=== PATIENT | female | born 1930 | race Caucasian/White ===

== ENCOUNTER 2018-11-28 16:28 | Observation (INO) ==
--- NOTE | 2018-11-28 16:37 | Emergency Department Note ---
Disposition Clinical Impression: Congestive heart failure, Renal insufficiency Disposition: Admitted As Inpatient Condition: Good General Adult HPI - General Stated complaint: adema and short of breath, fluid in lungs Time Seen by Provider: 11/28/18 16:30 Source: patient Mode of arrival: ambulatory Limitations: no limitations Nursing Notes Reviewed: Yes Vital Signs Reviewed: Yes - History of Present Illness HPI Narrative: Patient has noted increased swelling in her legs and some shortness of breath since . She denies any chest pain fevers or chills nausea vomiting or other complaints. She is extremely short of breath when she exerts herself. Onset (ago): day(s) (About 5 days) Location: left, right, lower extremity Pain Scale: 0 Improves with: nothing Worsens with: nothing Associated symptoms: Reports: shortness of breath - Related Data Home Medications Medication Instructions Recorded Confirmed amLODIPine [Norvasc] 5 mg PO BID 05/24/18 11/28/18 Meclizine [Antivert] 25 mg PO TID PRN 08/18/18 11/28/18 HYDROcodone/Acet 5/325 mg [[place] 1 tab PO BID PRN 11/03/18 11/28/18 5-325 mg] Aspirin [Adult Aspirin] 81 mg PO DAILY 11/08/18 11/28/18 Atorvastatin [Lipitor] 20 mg PO HS 11/28/18 11/28/18 Carvedilol 12.5 mg PO BID 11/28/18 11/28/18 Cyclobenzaprine [Flexeril] 5 mg PO DAILY 11/28/18 11/28/18 Ergocalciferol (VITAMIN D2) 400 unit PO DAILY 11/28/18 11/28/18 [Vitamin D] Famotidine [Acid Grievance Coordinator] 10 mg PO DAILY 11/28/18 11/28/18 Furosemide [Lasix] 40 mg PO QMWF 11/28/18 11/28/18 hydrALAZINE [HydrALAZINE] 25 mg PO Q8HR 11/28/18 11/28/18 Allergies Allergy/AdvReac Type Severity Reaction Status Date / Time Sulfa (Sulfonamide Allergy See Verified 02/07/18 09:49 Antibiotics) Comments All systems ED: reviewed and negative except as stated. Review of Systems: As Per HPI Constitutional: Denies: fever, chills, weakness, weight change Eyes: Denies: eye pain, eye discharge, vision change ENT ED: Denies: ear pain, throat pain, dental pain, hearing loss, epistaxis, congestion, dysphagia Cardiovascular: Denies: chest pain, palpitations, dyspnea on exertion, edema, syncope Respiratory: Reports: as per HPI, other (Shortness of breath). Denies: cough, dyspnea, wheezes, hemoptysis, stridor Gastrointestinal: Denies: abdominal pain, nausea, vomiting, diarrhea, c onstipation, hematemesis, melena, hematochezia Genitourinary: Denies: dysuria, frequency, hematuria, discharge Musculoskeletal: Reports: as per HPI, other (Lower extremity edema). Denies: back pain, neck pain, arthralgia, myalgia Integumentary: Denies: rash, abrasion, lesions Neurological: Denies: headache, weakness, numbness, paresthesias, confusion, abnormal gait, vertigo Psychiatric: Denies: anxiety, depression, suicidal thoughts, homicidal thoughts, auditory hallucinations, visual hallucinations Endocrine: Denies: fatigue Past Medical History - Past Medical History Attestation: Yes The following information was validated with the patient. Source: patient, nursing notes reviewed Medical history: Reports: hyperlipidemia, hypertension, other Psychiatric history: Reports: no psych history BRASS CHASER history: Reports: no BRASS CHASER history - Social History Smoking Status: Never smoker Alcohol use: Reports: none Drug use: Reports: none Physical Exam - General Limitations: no limitations General appearance: alert, in no apparent distress - Head Head exam: atraumatic, normocephalic, normal inspection - Eye Eye exam: Present: normal appearance, PERRL, EOMI - ENT ENT exam: normal exam, normal oropharynx, mucous membranes moist - Neck Neck exam: Present: normal inspection, full ROM, trachea midline - Chest Chest inspection: Present: normal inspection, symmetric chest wall rise - Respiratory Respiratory exam: Present: normal lung sounds bilaterally. Absent: respiratory distress, wheezes - Cardiovascular Cardiovascular exam: Present: regular rate, normal rhythm, normal heart sounds - Abdominal Exam Abdominal exam: Present: soft, Non-Tender. Absent: tenderness, distention, guarding, rebound, rigidity - Extremities Exam Extremities exam: Present: pedal edema, other (3-4+ pitting edema lower extremities and the knees down.) - Back Exam Back exam: Present: normal inspection, full ROM. Absent: tenderness - Neurological Exam Neurological exam: Present: alert, oriented X3 - Psychiatric Psychiatric exam: Present: normal affect, normal mood - Skin Skin exam: Present: warm, dry, intact Course Vital Signs Temperature 98.4 F 11/28/18 16:46 Pulse Rate 79 11/28/18 16:46 Respiratory Rate 20 11/28/18 16:46 Blood Pressure 188/76 11/28/18 16:46 O2 Sat by Pulse Oximetry 96 11/28/18 16:46 Temperature 97.5 F L 11/28/18 19:55 Pulse Rate 90 11/28/18 19:55 Respiratory Rate 15 11/28/18 19:55 Blood Pressure 181/73 11/28/18 19:55 O2 Sat by Pulse Oximetry 96 11/28/18 19:55 Oxygen Delivery Oxygen Delivery Room Air Medical Decision Making - Lab Data Lab results reviewed: Yes I reviewed the patient's lab results. Result diagrams: 11/28/18 17:12 11/28/18 17:12 Lab Results 11/28/18 11/28/18 11/28/18 Range/Units 17:12 17:12 17:12 WBC 3.3 L (4.3-11.1) K/mcL RBC 3.58 L (3.82-4.97) M/mcL Hgb 9.4 L (11.5-15.4) g/dL Hct 29.9 L (35.3-44.9) % MCV 83.5 (83.0-100.0) fL MCH 26.3 L (28.0-33.3) pg MCHC 31.4 L (31.6-35.5) g/dL RDW 17.5 H (11.5-14.5) % Plt Count 160 (140-400) K/mcL MPV 8.8 L (9.4-12.4) fL Immature Gran % 0.3 (0-4) % Seg Neutrophils % 75.1 % Lymphocytes % 11.4 % Monocytes % 12.0 % Eosinophils % 1.2 % Basophils % 0.0 % Neutrophils # 2.5 (1.6-8.9) K/mcL Lymphocytes # 0.4 L (0.6-4.6) K/mcL Monocytes # 0.4 (0.0-1.3) K/mcL Eosinophils # 0.0 (0.0-0.6) K/mcL Basophils # 0.0 (0.0-0.2) K/mcL Sodium 139 (136-145) mEq/L Potassium 4.6 (3.5-5.1) mEq/L Chloride 110 H (98-107) mEq/L Carbon Dioxide 19 L (23-29) mEq/L BUN 40 H (8-23) mg/dL Creatinine 2.16 H (0.60-1.20) mg/dL Est GFR ( Amer) 26 L (> 60) Est GFR (Non-Af Amer) 22 L (> 60) BUN/Creatinine Ratio 19 (6-26) Glucose 122 H (70-105) mg/dL Calculated Osmolality 299 (280-300) Calcium 9.2 (8.6-10.3) mg/dL Total Bilirubin 0.6 (0.3-1.0) mg/dL AST 14 (13-39) Units/L ALT 10 (7-52) Units/L Alkaline Phosphatase 47 (34-104) Units/L Troponin I < 0.03 (< 0.04) ng/mL B-Natriuretic Peptide 902 H (Less than 100) pg/mL Serum Total Protein 6.7 (6.4-8.9) g/dL Albumin 4.1 (3.5-5.7) g/dL Globulin 2.6 (2.4-3.5) g/dL Albumin/Globulin Ratio 1.6 (1.1-2.2) - Radiology Data Radiology results reviewed: Yes I reviewed the patient's radiology results.
[2018-11-28 17:18] LABS: Eosinophils % 1.2 %; Hematocrit 29.9 % (35.3-44.9); Hemoglobin 9.4 g/dL (11.5-15.4); Immature Granulocytes % 0.3 % (0-4); Lymphocytes # 0.4 K/mcL (0.6-4.6); Lymphocytes % 11.4 %; Mean Corpuscular HGB Conc 31.4 g/dL (31.6-35.5); Mean Corpuscular Hemoglobin 26.3 pg (28.0-33.3); Mean Corpuscular Volume 83.5 fL (83.0-100.0); Mean Platelet Volume 8.8 fL (9.4-12.4); Monocytes # 0.4 K/mcL (0.0-1.3); Neutrophils # 2.5 K/mcL (1.6-8.9); Platelet Count 160 K/mcL (140-400); Red Blood Count 3.58 M/mcL (3.82-4.97); Red Cell Distribution Width 17.5 % (11.5-14.5); Segmented Neutrophils % 75.1 %
[2018-11-28 17:35] LABS: Alanine Aminotransferase 10 Units/L (7-52); Albumin 4.1 g/dL (3.5-5.7); Albumin/Globulin Ratio 1.6 (1.1-2.2); Alkaline Phosphatase 47 Units/L (34-104); Aspartate Amino Transferase 14 Units/L (13-39); BUN/Creatinine Ratio 19 (6-26); Bilirubin,Total 0.6 mg/dL (0.3-1.0); Blood Urea Nitrogen 40 mg/dL (8-23); Calcium 9.2 mg/dL (8.6-10.3); Carbon Dioxide 19 mEq/L (23-29); Chloride 110 mEq/L (98-107); Globulin 2.6 g/dL (2.4-3.5); Glucose 122 mg/dL (70-105); Osmolality,Calculated 299 (280-300); Potassium 4.6 mEq/L (3.5-5.1); Sodium 139 mEq/L (136-145); Total Protein 6.7 g/dL (6.4-8.9); Troponin I < 0.03 ng/mL (< 0.04); eGFR For Non-African Americans 22 (> 60)
[2018-11-28] MEDS ORDERED: Furosemide 40 MG/4 ML VIAL IVP ONE (17:42)
[2018-11-28] MEDS ORDERED: Naloxone 0.4 MG/ML INJ IVP PRN (21:47)
[2018-11-28] MEDS: amLODIPine 5 MG TABLET PO SCH (22:30)
[2018-11-28] MEDS: hydrALAZINE 25 MG TABLET PO SCH (22:31)
[2018-11-28] MEDS ORDERED: *HR* Enoxaparin 40 MG/0.4 ML SYRINGE SQ STA (23:25)
[2018-11-29] MEDS: *HR* HYDROcodone/Acet 5/325 mg TABLET PO PRN ×2 (00:24→12:23)
[2018-11-29] MEDS ORDERED: Furosemide 40 MG/4 ML VIAL IVP ONE ×2 (02:00)
[2018-11-29] MEDS: hydrALAZINE 25 MG TABLET PO SCH (05:46)
[2018-11-29 06:13] LABS: Basophils % 0.3 %; Eosinophils # 0.1 K/mcL (0.0-0.6); Eosinophils % 2.8 %; Hemoglobin 8.1 g/dL (11.5-15.4); Immature Granulocytes % 0.3 % (0-4); Lymphocytes # 0.6 K/mcL (0.6-4.6); Lymphocytes % 17.9 %; Mean Corpuscular HGB Conc 31.2 g/dL (31.6-35.5); Mean Corpuscular Hemoglobin 26.2 pg (28.0-33.3); Mean Corpuscular Volume 84.1 fL (83.0-100.0); Mean Platelet Volume 9.2 fL (9.4-12.4); Monocytes # 0.6 K/mcL (0.0-1.3); Monocytes % 15.7 %; Neutrophils # 2.3 K/mcL (1.6-8.9); Platelet Count 150 K/mcL (140-400); Red Blood Count 3.09 M/mcL (3.82-4.97); Red Cell Distribution Width 17.7 % (11.5-14.5)
[2018-11-29 06:31] LABS: Calcium 8.6 mg/dL (8.6-10.3); Potassium 4.4 mEq/L (3.5-5.1)
[2018-11-29] MEDS: amLODIPine 5 MG TABLET PO SCH (08:35)
[2018-11-29] MEDS ORDERED: Cholecalciferol (D-3) 1,000 UNIT TABLET PO SCH (09:00)
[2018-11-29] MEDS ORDERED: Aspirin Enteric Coated 81 MG Tablet PO SCH (09:00)
[2018-11-29] MEDS ORDERED: Famotidine 20 MG TABLET PO SCH (09:00)
--- NOTE | 2018-11-29 11:14 | Internal Med History&Physical ---
Addendum entered and electronically signed by Rohan Kiser MD 11/29/18 11:48: I have personally performed a face to face evaluation on this patient. I have r eviewed and agree with the care plan. History and Exam by me shows: Patient with 4 day history of dyspnea on exertion and then dyspnea rest. This was also associated with increasing ankle edema. She takes Lasix 3 times weekly but has had increasing swelling for unknown reasons. She states that she had an echo sometime within the last year by Dr. Resendiz and was told that there was not any real problem. She has not seen Dr. Resendiz and is scheduled to see him in January. She has prolonged renal insufficiency but this has been stable and she follows with a word processing operator. She has no fevers chills or sweats or other infectious symptoms. She has chronic pain for which she follows with a and resource specialist teacher in [place]. Patient has no complaint of chest discomfort, dyspnea, orthopnea, breathing problems, palpitations, nausea or vomiting, constipation or diarrhea, other changes in bowel habits, heartburn, difficulty with urination, kidney problems or kidney stones, fevers chills or sweats, rash or itching, seizures, headache or lightheadedness, heat or cold intolerance, blood problems or anemia, or other new complaints, except as mentioned above. Review of systems is otherwise negative. Examination: (Except as mentioned above): General: In no apparent distress, alert and oriented 3. Head: Atraumatic and normocephalic. Eyes: Extraocular muscles are intact, pupils equal round and reactive to light and accommodation. Sclerae anicteric. Ears: External ears are normal to inspection and hearing is grossly normal. Nose: Patent without lesion noted. Mouth: No intraoral lesions seen. Teeth are in poor repair and several are missing. Neck: Supple with trachea midline. There is no thyromegaly or adenopathy and carotids are 2+ without bruit heard. Respiratory: No use of accessory muscles. Lungs are clear throughout, without rales or rhonchi. Normal airflow. Cardiovascular: Regular rate and rhythm without murmur appreciated. Abdomen: Bowel sounds are normal. No hepatosplenomegaly masses or tenderness. Obese and therefore difficult to palpate deeply. Extremities: No cyanosis clubbing but does have 3+ ankle and lower calf edema. There is no cord or calf tenderness. Neurological: A and O 3. Cranial nerves II through XII are intact. No focal deficits and no abnormal movements or postures. Skin: Warm and non-diaphoretic with no lesions noted. Breasts, pelvic and rectal: Not examined. I spoke with Dr. Resendiz and is unable to see her today. He said test early follow-up as an outpatient. He agrees with increasing her Lasix to daily until follow-up with him. Original Note: Date of Encounter: 11/29/18 Time of Encounter: 11:11 Assessment and Plan (1) Congestive heart failure Current visit: Yes Status: Chronic Is admitted to the emergency department yesterday with plaints of dyspnea and increased pedal edema. Patient's initial chest x-ray did show mild pulmonary edema and bilateral pleural effusions. Patient does have +2 pedal edema which she states has increased recently was started on amlodipine per cardiology patient denies any chest discomforts or palpitations. Patient was diuresed last evening and states that she has urinated multiple times throughout the night. Patient's weight show a decrease of 2 kg since yesterday. We will attempt to communicate with Dr. Victoria cardiology about patient's amlodipine and this possible relationship with her increased fluid retention. Initial troponins were negative. Today patient states that her work of breath have improved greatly since her admission and after being diuresed. We will continue to monitor patient Qualifiers: Heart failure type: unspecified Heart failure chronicity: unspecified Qualified Code(s): I50.9 - Heart failure, unspecified (2) HTN (hypertension) Current visit: Yes Status: Acute No acute issues. Patient's blood pressure has been slightly elevated with systolic between 150 and 160. We will continue patient on current medications. Patient has been diuresis to today and will monitor patient's blood pressure and its response. Qualifiers: Hypertension type: unspecified Qualified Code(s): I10 - Essential (primary) hypertension (3) Lumbar radicular pain Current visit: No Status: Chronic No acute issues. Patient's medical records showed she had an ALEXIS earlier this month to the lumbar spine. Patient currently denies any discomforts. We will continue to monitor. Internal Medicine - H&P: HPI Chief complaint: dyspnea Admitted From: Home Plans for Post Hospital Care: Home History of present illness: Ms. Shipman is a 88 year old female, who presented to emergency department with complaints of dyspnea and increased pedal edema. States that her swelling to her bilateral legs has increased over the past several weeks and then over the past 2 days she began to have increasing difficulty with breathing during minimal exertion. Admission chest x-ray did show mild pulmonary edema and bilateral pleural effusions. Patient was admitted to medical floor for further evaluation and monitoring. Patient was given Lasix and has been diuresing well overnight. Patient states today that her work of breath has improved greatly. Patient states she has been up frequently throughout the night to urinate. Patient's medications have been reviewed and patient was able to confirm that she started several new medications over the past 2 months, with 1 be in amlo dipine. Patient has been following with Dr. Resendiz for cardiology. Past Med Surg Social Fam HX - Past Medical History Medical history: asthma, GERD, hyperlipidemia, hypertension, renal disease, other Additional medical history: CHRONIC BACK PAIN Psychiatric history: no psych history - Past Surgical History Surgical History: coronary bypass (CABG) - Social History Smoking Status: Never smoker Smokeless Tobacco Status: No Alcohol use: none Drug use: none Internal Medicine - H&P: Meds amLODIPine [Norvasc] 5 mg PO BID 05/24/18 [History] Meclizine [Antivert] 25 mg PO TID PRN 08/18/18 [History] HYDROcodone/Acet 5/325 mg [[place] 5-325 mg] 1 tab PO BID PRN 11/03/18 [History] Aspirin [Adult Aspirin] 81 mg PO DAILY 11/08/18 [History] Atorvastatin [Lipitor] 20 mg PO HS 11/28/18 [History] Carvedilol 12.5 mg PO BID 11/28/18 [History] Cyclobenzaprine [Flexeril] 5 mg PO DAILY 11/28/18 [History] Ergocalciferol (VITAMIN D2) [Vitamin D] 400 unit PO DAILY 11/28/18 [History] Famotidine [Acid Vp Clinical] 10 mg PO DAILY 11/28/18 [History] Furosemide [Lasix] 40 mg PO QMWF 11/28/18 [History] hydrALAZINE [HydrALAZINE] 25 mg PO Q8HR 11/28/18 [History] Allergy/AdvReac Type Severity Reaction Status Date / Time Sulfa (Sulfonamide Allergy See Verified 02/07/18 09:49 Antibiotics) Comments All Systems PM: A 10-system review of systems was performed and is negative for pertinent findings except as documented above in the HPI. - Constitutional Constitutional: as per HPI, no chills, no fever(s), no night sweats - EENT Eyes: as per HPI, no change in vision, no discharge, no pain, no photophobia Ears: as per HPI, no ear discharge, no ear pain, no tinnitus Nose, mouth and throat: no dysphagia, no nasal discharge, no neck pain, no sore throat - Breasts Breasts: as per HPI - Cardiovascular Cardiovascular ROS IM: as per HPI, no chest pain, no diaphoresis, no dyspnea, no lightheadedness, no palpitations, no syncope - Respiratory Respiratory: as per HPI, no cough, no dyspnea, no wheezing, no excessive phlegm production - Gastrointestinal Gastrointestinal: as per HPI, no abdominal pain, no diarrhea, no hematemesis, no hematochezia, no melena, no nausea, no vomiting - Genitourinary Genitourinary: as per HPI, no change in urinary stream, no dysuria, no flank pain, no hematuria - Musculoskeletal Musculoskeletal ROS IM: as per HPI, no numbness, no tingling - Integumentary Integumentary IM: as per HPI, no rash, no unusual bruising - Neurological Neurological ROS: as per HPI, no confusion, no convulsions, no focal weakness, no numbness, no tingling, no tremor(s) - Hematologic/Lymphatic Hematologic/Lymphatic: no easy bruising - Constitutional Vitals: Temp Pulse Resp BP Pulse Ox 98.1 F 84 16 155/52 96 11/29/18 07:08 11/29/18 07:08 11/29/18 07:08 11/29/18 07:08 11/29/18 07:08 General appearance: Present: A&O X 3, pleasant - Head Head exam: Present: atraumatic, normocephalic - Eye Eye exam: Present: PERRL, conjuntiva pink, sclera anicteric Pupils: Present: PERRL - Neck Neck exam general surgery: Present: supple, trachea midline. Absent: lymphadenopathy - Respiratory Respiratory exam: Present: decreased breath sounds, CTAB, rales. Absent: accessory muscle use, rhonchi, wheezes Additional comments: Respiratory effort appears relaxed while at rest. Lungs are clear throughout upper estr[place] with fine posterior [place] to basilar estrada. Productive cough noted - Cardiovascular Cardiovascular exam: Present: RRR, +S1, +S2. Absent: diastolic murmur, gallop, rubs, systolic murmur - GI/Abdominal GI/Abdominal exam: Present: normal bowel sounds, soft, no peritoneal signs. Absent: distended, tenderness - Extremities Exam Extremities exam: Present: pedal edema, warm, radial pulses palpable and symmetrical. Absent: calf tenderness, cyanotic Additional comments: Patient with +2 edema to bilateral lower legs and ankles - Neurological Exam Neurological exam: Present: CN II-XII intact, oriented X3, no focal deficits. Absent: pronater drift, facial droop, speech deficit - Skin Skin exam: Present: dry, intact Internal Med - H&P Results - Labs CBC & Chem 7: 11/29/18 05:40 11/29/18 05:40 Labs: Short CBC 11/28/18 11/29/18 Range/Units 17:12 05:40 WBC 3.3 L 3.6 L (4.3-11.1) K/mcL Hgb 9.4 L 8.1 L (11.5-15.4) g/dL Hct 29.9 L 26.0 L (35.3-44.9) % Plt Count 160 150 (140-400) K/mcL Neutrophils # 2.5 2.3 (1.6-8.9) K/mcL BMP 11/28/18 11/29/18 17:12 05:40 Sodium 139 139 Potassium 4.6 4.4 Chloride 110 H 110 H Carbon Dioxide 19 L 21 L BUN 40 H 38 H Creatinine 2.16 H 2.29 H Glucose 122 H 83 Calcium 9.2 8.6 Cardiac Enzymes 11/28/18 Range/Units 17:12 Troponin I < 0.03 (< 0.04) ng/mL Liver Function 11/28/18 Range/Units 17:12 Total Bilirubin 0.6 (0.3-1.0) mg/dL AST 14 (13-39) Units/L ALT 10 (7-52) Units/L Alkaline Phosphatase 47 (34-104) Units/L Albumin 4.1 (3.5-5.7) g/dL - Impressions ITS Impressions Chest X-Ray 11/28/18 16:40 IMPRESSION: Cardiomegaly with pulmonary vascular congestion and trace pleural effusions. There is atelectasis in the lung bases D/ / Rocael Roth MD / Rocael Roth MD Interpreting Provider: Rocael Roth MD Chest X-Ray 11/29/18 07:00 IMPRESSION: Stable pulmonary edema, pleural effusions and left basilar atelectasis or pneumonia. D/ / Dwayne Gracia MD / Dwayne Gracia MD Interpreting Provider: Dwayne Gracia MD
[2018-11-29 11:32] VITALS: BP 134/68
--- NOTE | 2018-11-29 12:33 | Discharge Summary ---
Addendum entered and electronically signed by Rohan Kiser MD 11/29/18 13:04: Please see my H&P from today. Original Note: Orders not resulted at time of discharge: Pending orders 11/28/18 16:40 ECG 12 lead ECG [ECG] Stat Date of Encounter: 11/29/18 Time of Encounter: 12:31 - Discharge Diagnosis (1) Congestive heart failure Priority: Primary Status: Chronic Comments: Patient was admitted to emergency department with complaints of dyspnea and increased pedal edema. Patient was admitted to the nursing floor overnight and was diuresed. Today patient states that her work of breath has improved greatly. Patient's has lost 2 kg on today's weight. Patient is being discharged to home with current medications and will increase her dosing of Lasix daily. Patient is recommended to follow up with her PCP and punch out crew member within one week for further evaluation and treatment. Qualifiers: Heart failure type: unspecified Heart failure chronicity: unspecified Qualified Code(s): I50.9 - Heart failure, unspecified (2) HTN (hypertension) Priority: Secondary Status: Acute Comments: Vital signs are stable. Patient's blood pressure has been slightly elevated between 1 5168 and her stay here. We will continue on current home medications and patient to follow-up with PCP and cardiology for further evaluation. Qualifiers: Hypertension type: unspecified Qualified Code(s): I10 - Essential (primary) hypertension (3) Lumbar radicular pain Priority: Secondary Status: Chronic Comments: No acute issues. Patient denies any current pain to her lower back. Patient has had a ALEXIS earlier in the month. We will continue with current home medications and patient is to follow-up with pain management. Hospital course: Ms. Shipman is a 88 year old female , who presented to emergency department with complaints of dyspnea and increased pedal edema. Patient was diuresed overnight and today states that her work of breath has improved greatly. Patient also confirmed that she had started on amiodarone over the past several months. We will continue patient on current home medications but will increase her Lasix to daily dosing and instructed her to follow up with Dr. Resendiz cardiology within one week. Patient is also recommended to follow up with her PCP within one week. Discharge discussed with: patient Time spent discussing smoking cessation with patient: 3 to 10 minutes - Time Spent with Patient Total time spent providing and/or coordinating discharge services: Time spent: Less than 30 minutes - Discharge Medications Prescriptions: No Action amLODIPine [Norvasc] 5 mg PO BID Meclizine [Antivert] 25 mg PO TID PRN PRN Reason: Dizziness HYDROcodone/Acet 5/325 mg [[place] 5-325 mg] 1 tab PO BID PRN PRN Reason: Pain Aspirin [Adult Aspirin] 81 mg PO DAILY hydrALAZINE [HydrALAZINE] 25 mg PO Q8HR Furosemide [Lasix] 40 mg PO QMWF Famotidine [Acid Diaphragm Builder] 10 mg PO DAILY Cyclobenzaprine [Flexeril] 5 mg PO DAILY Carvedilol 12.5 mg PO BID Atorvastatin [Lipitor] 20 mg PO HS Ergocalciferol (VITAMIN D2) [Vitamin D] 400 unit PO DAILY Home Medications: amLODIPine [Norvasc] 5 mg PO BID 05/24/18 [History] Meclizine [Antivert] 25 mg PO TID PRN 08/18/18 [History] HYDROcodone/Acet 5/325 mg [[place] 5-325 mg] 1 tab PO BID PRN 11/03/18 [History] Aspirin [Adult Aspirin] 81 mg PO DAILY 11/08/18 [History] Atorvastatin [Lipitor] 20 mg PO HS 11/28/18 [History] Carvedilol 12.5 mg PO BID 11/28/18 [History] Cyclobenzaprine [Flexeril] 5 mg PO DAILY 11/28/18 [History] Ergocalciferol (VITAMIN D2) [Vitamin D] 400 unit PO DAILY 11/28/18 [History] Famotidine [Acid Diaphragm Builder] 10 mg PO DAILY 11/28/18 [History] Furosemide [Lasix] 40 mg PO QMWF 11/28/18 [History] hydrALAZINE [HydrALAZINE] 25 mg PO Q8HR 11/28/18 [History] Allergies/Adverse Reactions: Allergy/AdvReac Type Severity Reaction Status Date / Time Sulfa (Sulfonamide Allergy See Verified 02/07/18 09:49 Antibiotics) Comments Date of admission: 11/28/18 19:17 Primary care physician: Lanie Hassan Discharging clinician: Rohan Kiser - Constitutional Vitals: Temp Pulse Resp BP Pulse Ox 97.8 F 79 16 134/68 96 11/29/18 11:31 11/29/18 11:31 11/29/18 11:31 11/29/18 11:31 11/29/18 11:31 General appearance: Present: A&O X 3, pleasant - Head Head exam: Present: atraumatic, normocephalic - Eye Eye exam: Present: PERRL, conjuntiva pink, sclera anicteric Pupils: Present: PERRL - Neck Neck exam general surgery: Present: supple, trachea midline. Absent: lymphadenopathy - Respiratory Respiratory exam: Present: CTAB. Absent: accessory muscle use, rales, rhonchi, wheezes Additional comments: Lungs are clear throughout upper [place] and find posterior basilar rales heard. Respiratory effort appears relaxed. No productive cough noted. - Cardiovascular Cardiovascular exam: Present: RRR, +S1, +S2. Absent: diastolic murmur, gallop, rubs, systolic murmur - GI/Abdominal GI/Abdominal exam: Present: normal bowel sounds, soft, no peritoneal signs. Absent: distended, tenderness - Extremities Exam Extremities exam: Present: warm, radial pulses palpable and symmetrical. Absent: calf tenderness, cyanotic, pedal edema - Neurological Exam Neurological exam: Present: CN II-XII intact, oriented X3, no focal deficits. Absent: pronater drift, facial droop, speech deficit - Skin Skin exam: Present: dry, intact - Patient Status Disposition: Home, Self-Care Condition: Good Overall status at discharge: patient is progressing back to baseline - Discharge Instructions Instructions: Heart Failure (DC) Follow Up With: Masoud Resendiz MD [Partnered Physician] - 12/07/18 3:00 pm ([facility]) Lanie Hassan [Primary Care Provider] - 12/02/18 10:00 am Forms: ED Satisfaction Letter - Diet and Activity Activity: increase activity as tolerated Diet: low fat, low cholesterol, low salt diet
--- NOTE | 2018-11-29 17:33 | Electrocardiograph Report ---
[place] [id number] Test Date: 2018-11-28 Pat Name: Ailyn Shipman Department: [id number] Room: 115 Gender: F Human Resources Intern: : 1930 Requested By: Wade Call Order Number: [id number] Reading MD: Tiffanie Young Measurements Intervals [place] Rate: 84 P: 61 AL: 52 QRS: 94 QRSD: 93 T: -9 QT: 369 QTc: 437 Interpretive Statements Sinus rhythm Short AL interval Probable anteroseptal infarct, recent Electronically Signed On 11-29-2018 17:31:56 EDT by Tiffanie Young
[2018-11-29] MEDS ORDERED: *HR* Enoxaparin 40 MG/0.4 ML SYRINGE SQ SCH (21:00)
== END 2018-11-29 14:09 | disposition home or self-care (01) ==
LOC: EMEROOGRE 16:28 → INPGRE 16:28